=== PATIENT | female | born 1955 | race Caucasian/White ===

== ENCOUNTER 2018-09-07 17:15 | Emergency (ER) | payer OTHER ==
[~2018-09-07] VITALS: Ht 167.6 cm; Wt 105.2 kg
[2018-09-07] MEDS ORDERED: LOSARTAN POTASS50 MG (17:30)
[2018-09-07] MEDS ORDERED: ATENOLOL50 MG (17:31)
[2018-09-07] MEDS ORDERED: NORVASC5 MG (17:31)
[2018-09-08] MEDS ORDERED: INTESTINEX680 M1 PO (07:01)
[2018-09-08] MEDS ORDERED: PEPCID AC20 MG PO (07:01)
[2018-09-08] MEDS ORDERED: CIPRO500 MG PO (07:01)
[2018-09-08] MEDS ORDERED: METRONIDAZOLE500 MG PO (07:01)
== END 2018-09-08 07:49 ==
LOC: ER 17:15
DX: K52.89 Other specified noninfective gastroenteritis and colitis (principal)

== ENCOUNTER 2018-12-13 09:30 | Day surgery (SDC) | payer OTHER ==
[~2018-12-13 09:30] MED LIST: ATENOLOL50 MG; CIPRO500 MG PO; INTESTINEX680 M1 PO; LOSARTAN POTASS50 MG; METRONIDAZOLE500 MG PO; NORVASC5 MG; PEPCID AC20 MG PO
== END 2018-12-13 17:39 | disposition home or self-care (01) ==
LOC: AMB-ENDOS 09:30
DX: K62.1 Rectal polyp (principal); K64.2 Third degree hemorrhoids